=== PATIENT | female | born 1975 | race Two or more races ===

== ENCOUNTER 2019-12-31 23:44 | Emergency (ER) | payer SELFPAY ==
[2020-01-01] MEDS ORDERED: IBUPROFEN 600 MG TABLET PO ONE (01:00)
[2020-01-01] MEDS ORDERED: PREDNISONE 20 MG TABLET PO ONE (01:01)
[2020-01-01] MEDS ORDERED: DIPHENHYDRAMINE HCL 25 MG CAPSULE PO ONE (01:01)
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
[2020-01-01 01:19] VITALS: BP 130/72
== END 2020-01-01 01:15 | disposition home or self-care (01) ==
LOC: ER 23:44
DX: T60.2X1A Toxic effect of other insecticides, accidental (unintentional), initial encounter (principal); T30.4 Corrosion of unspecified body region, unspecified degree; M79.641 Pain in right hand; R20.8 Other disturbances of skin sensation; Y93.89 Activity, other specified; Z88.0 Allergy status to penicillin; F17.200 Nicotine dependence, unspecified, uncomplicated
CPT/HCPCS: 99283; J7512